=== PATIENT | male | born 1960 | race Caucasian/White ===

== ENCOUNTER → 2018-04-11 | Outpatient (CLI) | payer BC ==
--- NOTE | 2018-04-11 14:32 | RADIOLOGY REPORT (SQ) ---
EXAM DESCRIPTION: CT SOFT TISSUE NECK WITHOUT COMPLETED DATE/TIME: 04/11/2018 1:53 pm REASON FOR STUDY: LOCALIZED SWELLING, MASS AND LUMP, NECK (R22.1) R22.1 LOCALIZED SWELLING, MASS AN D LUMP, NECK COMPARISON: None. TECHNIQUE: Noncontrast scanning from skull base through lung apices with review of bone, soft tissue and lung windows. Reconstructed coronal and sagittal MPR images reviewed. All images stored on PAC S. All CT scanners at this facility use dose modulation, iterative reconstruction, and/or weight based d osing when appropriate to reduce radiation dose to as low as reasonably achievable (ALARA). [facility]: Dose Right [facility]: CareDose [facility]: Dose Right [facility]: Teradose 4D [facility]: Maven7 RADIATION DOSE: 21.7 mGy. LIMITATIONS: Streak artifact from metallic dental work FINDINGS: SKULL BASE: Non contrasted images of the inferior brain parenchyma are unremarkable. MAJOR SALIVARY GLANDS: No solid or cystic masses. No inflammatory changes. LYMPHADENOPATHY: Patient indicates a focal area of swelling and tenderness along the right neck. The approximate area was marked on the patient's skin with a BB. Deep to the BB, there is a 1.4 x 0.8 c m lymph node with surrounding inflammation in the adjacent fat, at the ventral edge of the sternoclei domastoid muscle. This is just inferior to the parotid gland, level IIa. This is abnormal but nonsp ecific and could be an infected or inflamed lymph node. Malignancy could not entirely be excluded. No bulky cervical adenopathy is present. Scattered cervical nodes are seen, normal in size in the zurita bmental, carotid space, and posterior triangle regions bilaterally. MUCOSAL MASSES OR ASYMMETRY: No mucosal masses or asymmetry. LARYNX/CORDS: No abnormal findings. LUNG APICES: Clear. BONES: No fracture. Multilevel degenerative disc disease with multilevel central canal and foraminal narrowing THYROID: Normal size. No masses. PARANASAL SINUSES: Clear. OTHER: No other significant finding. IMPRESSION: Right-sided neck swelling correlates with a mildly enlarged lymph node, level IIA right neck. This could be due to infection or inflammation. Malignancy could not entirely be excluded. TECHNICAL DOCUMENTATION: JOB ID: [id number] Quality ID # [id number]: Final reports with documentation of one or more dose reduction techniques (e.g., Au tomated exposure control, adjustment of the mA and/or kV according to patient size, use of iterative reconstruction technique) 2010 [email or web address]- All Rights Reserved Reading location - IP/workstation name: [email or web address]
== END ==
LOC: RAD 13:35
PROVIDERS: ATTEND Family Medicine Geriatric Medicine
DX: R22.1 Localized swelling, mass and lump, neck (principal)
CPT/HCPCS: 70490

== ENCOUNTER 2019-07-30 05:53 | Day surgery (SDC) | payer BC ==
[2019-07-23 10:58] LABS: ANION GAP 11 (5-19); BLOOD UREA NITROGEN 30 mg/dL (7-20); CALCIUM 9.8 mg/dL (8.4-10.2); CARBON DIOXIDE 26 mmol/L (22-30); CHLORIDE 104 mmol/L (98-107); GLUCOSE 90 mg/dL (75-110); POTASSIUM 5.4 mmol/L (3.6-5.0)
--- NOTE | 2019-07-23 21:01 | EKG REPORT ---
SEVERITY:- BORDERLINE ECG - SINUS RHYTHM PROBABLE LEFT ATRIAL ABNORMALITY : Confirmed by: Juana Simpson MD 23-Jul-2019 21:01:03
[~2019-07-30 05:53] MED LIST: LACTATED RINGERS 1000 ML IV PRN; LIDOCAINE 0.5% INJ-PF (5 MG/ML) 50 ML SDV SUBCUT PRN
[2019-07-30] MEDS ORDERED: PROPOFOL INJ 200 MG/20 ML VIAL IV ONE (07:27)
[2019-07-30] MEDS ORDERED: ONDANSETRON HCL INJ/PF 4 MG/2 ML SDV IV PRN (08:12)
[2019-07-30 09:42] VITALS: BP 130/69
--- NOTE | 2019-07-30 09:57 | Discharge Summary ---
Discharge Summary (SDC) - Discharge Final Diagnosis: Colon polyps Date of Surgery: 07/30/19 Discharge Date: 07/30/19 Condition: Stable Forms: ASU Anesthesia D/C Instruction, Discharge POC-Surgical Service Treatment or Instructions: Discharge home. Diet as tolerated. Activity: Nonstrenuous. Follow-up with me in 2 weeks. Referrals: BONILLA IBARRA MD [ACTIVE STAFF] - 08/08/19 8:45 am Discharge Diet: As Tolerated Respiratory Treatments at Home: Deep Breathing/Coughing, Incentive Spirometer Discharge Activity: Balance Activity w/Rest Home Care Assistance: None Needed Report the Following to Your Physician Immediately: Shortness of Breath, Nausea, Vomiting, Increase in Pain, Fever over 101 Degrees, Unusual Bleeding
--- NOTE | 2019-07-30 10:00 | Operative Report ---
Nonrecallable Operative Report DATE OF SURGERY: 07/30/19 PREOPERATIVE DIAGNOSIS: History of colon polyps POSTOPERATIVE DIAGNOSIS: Colon polyps OPERATION: 1. Colonoscopy to the cecum. 2. Hot biopsy of colon polyp at 20 cm. SURGEON: BONILLA IBARRA ANESTHESIA: LMAC TISSUE REMOVED OR ALTERED: Colon polyp at 20 cm COMPLICATIONS: None apparent ESTIMATED BLOOD LOSS: Minimal PROCEDURE: Procedure in detail: After informed consent was obtained, the patient was brought to the operating room and laid in the left lateral decubitus position. The endoscope was passed up the rectum, sigmoid colon, descending colon, across the transverse colon, down the ascending colon, and into the cecum. The ileocecal valve and appendiceal orifice were identified. The scope was then withdrawn, circumferentially noting the mucosa. The prep was good. Scope was withdrawn past the ascending colon, transverse colon, down the descending colon, and into the sigmoid colon. At the rectosigmoid junction, approximately 20 cm, a small, diminutive polyp was identified. This was removed in its entirety via hot biopsy forcep. The scope was then withdrawn down into the rectum. Retroflexion maneuver was performed noting small internal hemorrhoids that were not bleeding. The scope was straightened, air was suctioned from the rectum, scope was removed, and the procedure was concluded. All sponge, instrument, and needle counts were correct. Condition: Stable.
== END 2019-07-30 09:35 | disposition home or self-care (01) ==
LOC: END 05:53
PROVIDERS: ATTEND Surgery
DX: Z12.11 Encounter for screening for malignant neoplasm of colon (principal); Z86.010 Personal history of colon polyps; K63.5 Polyp of colon; M10.9 Gout, unspecified; E55.9 Vitamin D deficiency, unspecified; E78.5 Hyperlipidemia, unspecified; R59.0 Localized enlarged lymph nodes; I10 Essential (primary) hypertension; E07.9 Disorder of thyroid, unspecified; Z79.899 Other long term (current) drug therapy; Z79.84 Long term (current) use of oral hypoglycemic drugs; Z79.82 Long term (current) use of aspirin; Z85.828 Personal history of other malignant neoplasm of skin
CPT/HCPCS: 45384; 93005; 36415 ×2; 82962; 84132; 80048; 88305 ×2; 93010; 00811; J2704; 811